=== PATIENT | male | born 1965 | race Caucasian/White ===

== ENCOUNTER 2018-09-18 18:36 | Emergency (ER) | payer OTHER, MEDICAID ==
[~2018-09-18] VITALS: Ht 162.6 cm; Wt 72.6 kg
[~2018-09-18 18:36] MED LIST: ABILIFY MAINTE400 MG IM; ABILIFY20 MG PO; ACETAMINOPHEN-1 EAC1 PO; AZITHROMYCIN 2250 MG PO; BACLOFEN 10MG T10 MG PO; BACTRIM DS TAB1 EACH PO; BUPROPION; COLACE100 MG PO; DESYREL; FLEXERIL PO; HYDROCODONE-AP1 EAC6 PO; IBUPROFEN 800800 M1 PO; KEFLEX500 M1 PO; OMEPRAZOLE 20 M20 M1 PO; OSELB75 PO; PAIN & FEVER325 MG PO; PERCOCET 5-3251 EACH PO; PREDNISONE 10 M10 MG PO; PREDNISONE 20 M20 M1 PO; PROAIR HFA8.5 GM INH; ROBAXIN 750 MG750 M1 PO; ROBAXIN500 MG PO; TAMSULOSIN HCL0.4 MG PO; TESSALON PERLE100 MG PO; TRAZODONE 150150 M1; TRAZODONE 150150 M1 PO; TRAZODONE HCL100 MG PO; TRIFLUOPERAZINE10 MG PO; UNKNOWN PSYCH MED; VICODIN 5-5001 EACH PO; VISTARIL 25 MG25 M1 PO; WELLBUTRIN 100100 M1 PO; WELLBUTRIN 100100 MG PO; ZPAK PO
[2018-09-18] MEDS ORDERED: TRAZODONE HCL100 MG PO (18:45)
[2018-09-18] MEDS ORDERED: TRAMADOL 50 MG50 MG PO (19:45)
[2018-09-18 19:56] VITALS: BP 109/73
== END 2018-09-18 19:56 | disposition home or self-care (01) ==
LOC: M.ERS 18:36
DX: S93.491A Sprain of other ligament of right ankle, initial encounter (principal); F32.9 Major depressive disorder, single episode, unspecified; M41.9 Scoliosis, unspecified; F17.210 Nicotine dependence, cigarettes, uncomplicated; Z90.49 Acquired absence of other specified parts of digestive tract; Z85.46 Personal history of malignant neoplasm of prostate; W10.8XXA Fall (on) (from) other stairs and steps, initial encounter; Y93.89 Activity, other specified; Y92.89 Other specified places as the place of occurrence of the external cause; Y99.8 Other external cause status

== ENCOUNTER 2019-08-26 11:44 | Emergency (ER) | payer OTHER, MEDICAID ==
[~2019-08-26] VITALS: Ht 165.1 cm; Wt 77.1 kg
[~2019-08-26 11:44] MED LIST changes: +TRAMADOL 50 MG50 MG PO
[2019-08-26 12:33] LABS: ABSOLUTE BASOPHILS 0.1 thou/uL (0.0-0.2); ABSOLUTE EOSINOPHILS 0.1 thou/uL (0.0-0.7); ABSOLUTE MONOCYTES 0.4 thou/uL (0.0-1.2); BASOPHILS 1.1 %; EOSINOPHILS 1.1 %; HEMATOCRIT 48.3 % (42.0-52.0); HEMOGLOBIN 16.9 gm/dL (14.0-18.0); LYMPHOCYTES 35.3 %; MCH 32.1 pg (26.0-34.0); MCHC 34.9 g/dL (28.0-37.0); MCV 92.1 fL (80.0-100.0); MONOCYTES 7.8 %; MPV 7.8 fl. (7.2-11.1); NUCLEATED RBCS 0 /100WBC; PLATELET COUNT* 299 thou/uL (150-400); POLYS 54.7 %; RBC 5.24 mil/uL (4.50-6.00); RDW-CV 13.4 % (10.5-14.5); WBC 5.6 thou/uL (4.0-11.0)
[2019-08-26 12:43] LABS: CALCIUM 8.8 mg/dL (8.5-10.1); CREATININE 1.2 mg/dL (0.6-1.3)
[2019-08-26 12:59] LABS: ALBUMIN 3.7 g/dL (3.4-5.0); TOTAL BILIRUBIN 0.7 mg/dL (<0.1-1.0); TOTAL PROTEIN 7.1 g/dL (6.4-8.2)
[2019-08-26] MEDS ORDERED: NABUMETONE 750750 M1 PO (13:12)
[2019-08-26] MEDS ORDERED: ZANAFLEX4 MG PO (13:12)
[2019-08-26] MEDS ORDERED: TRAMADOL 50 MG50 MG PO (13:12)
[2019-08-26 13:24] VITALS: BP 114/73
--- NOTE | 2019-08-26 15:18 | EKG ---
[place] [address] ELECTROCARDIOGRAM REPORT Name: SHAJIMARCK Carrizales Room: [facility]#: [id number] Admission: 08/26/19 Attend Phys: Discharge: 08/26/19 Date of : 67 Report #: [id number] THIS REPORT FOR: //name// [facility] ED Test Date: 2019-08-26 Test Time: 12:07:54 Pat Name: MARCK GIRARD Department: Room: Gender: M Auditing Specialist: : [id number] Requested By: Faviola Medina Order Number: [id number] MD: Sulaiman Savage Measurements Intervals [place] Rate: 75 P: 34 NH: 157 QRS: -10 QRSD: 100 T: 15 QT: 370 QTc: 414 Interpretive Statements Sinus rhythm Probable left atrial enlargement Low voltage, precordial leads Compared to ECG 09/28/2017 15:40:38 Low QRS voltage now present Electronically Signed On 08-26-2019 15:18:09 CDT by Sulaiman Savage [email or web address] <ELECTRONICALLY SIGNED> By: Sulaiman Savage MD, [facility] 08/26/19 1518 06 Sulaiman Savage MD, FACC /EPI
== END 2019-08-26 13:25 | disposition home or self-care (01) ==
LOC: M.ERS 11:44
PROVIDERS: Nurse Practitioner Family
DX: S46.212A Strain of muscle, fascia and tendon of other parts of biceps, left arm, initial encounter (principal); F32.9 Major depressive disorder, single episode, unspecified; Z90.49 Acquired absence of other specified parts of digestive tract; Z85.46 Personal history of malignant neoplasm of prostate; Z90.79 Acquired absence of other genital organ(s); X58.XXXA Exposure to other specified factors, initial encounter; Y93.89 Activity, other specified; Y92.89 Other specified places as the place of occurrence of the external cause; Y99.8 Other external cause status

== ENCOUNTER → 2020-04-21 | Outpatient (CLI) | payer OTHER, MEDICAID ==
[~2020-04-21] MED LIST changes: +NABUMETONE 750750 M1 PO; +ZANAFLEX4 MG PO
== END ==
LOC: M.MRI 04-16 11:30
PROVIDERS: ATTEND Family Medicine
DX: M19.012 Primary osteoarthritis, left shoulder (principal); G89.29 Other chronic pain; M25.512 Pain in left shoulder; M75.42 Impingement syndrome of left shoulder

== ENCOUNTER 2021-08-07 12:35 | Emergency (ER) | payer OTHER, MEDICAID ==
[~2021-08-07] VITALS: Ht 165.1 cm; Wt 73.9 kg
[2021-08-07] MEDS ORDERED: ABILIFY20 MG PO (12:50)
[2021-08-07] MEDS ORDERED: OMEPRAZOLE 20 M20 M1 PO (12:50)
[2021-08-07] MEDS ORDERED: SYMBICORT160 MCG/4. INH (12:51)
[2021-08-07 13:03] LABS: URINE BLOOD NEGATIVE (Negative); URINE CLARITY CLEAR; URINE COLOR YELLOW; URINE GLUCOSE-RANDOM NEGATIVE (Negative); URINE KETONES NEGATIVE (Negative); URINE LEUKOCYTES-REFLEX NEGATIVE (Negative); URINE NITRITE-REFLEX NEGATIVE (Negative); URINE PROTEIN NEGATIVE (Negative); URINE SPECIFIC GRAVITY >= 1.030 (1.005-1.030)
[2021-08-07 13:15] LABS: URINE BILIRUBIN 1+ (Negative)
[2021-08-07 13:16] LABS: ICTOTEST (BILI CONFIRMATORY) Negative (Negative)
[2021-08-07 14:01] LABS: ABSOLUTE BASOPHILS 0.1 thou/uL (0.0-0.2); ABSOLUTE EOSINOPHILS 0.1 thou/uL (0.0-0.7); ABSOLUTE LYMPHOCYTES 2.2 thou/uL (0.8-5.3); ABSOLUTE MONOCYTES 0.7 thou/uL (0.0-1.2); ABSOLUTE NEUTROPHILS 3.7 thou/uL (1.6-8.1); BASOPHILS 1.2 %; EOSINOPHILS 1.5 %; HEMATOCRIT 47.9 % (42.0-52.0); HEMOGLOBIN 16.5 gm/dL (14.0-18.0); LYMPHOCYTES 31.9 %; MCH 31.4 pg (26.0-34.0); MCHC 34.4 g/dL (28.0-37.0); MCV 91.1 fL (80.0-100.0); MONOCYTES 10.9 %; MPV 7.6 fl. (7.2-11.1); NUCLEATED RBCS 0 /100WBC; PLATELET COUNT* 293 thou/uL (150-400); POLYS 54.5 %; RBC 5.26 mil/uL (4.50-6.00); RDW-CV 13.2 % (10.5-14.5); WBC 6.9 thou/uL (4.0-11.0)
[2021-08-07 14:07] LABS: CALCIUM 8.1 mg/dL (8.5-10.1); CREATININE 1.1 mg/dL (0.6-1.3)
[2021-08-07 14:12] LABS: ALBUMIN 3.8 g/dL (3.4-5.0); TOTAL BILIRUBIN 0.7 mg/dL (<0.1-1.0); TOTAL PROTEIN 6.7 g/dL (6.4-8.2)
[2021-08-07] MEDS ORDERED: SKELAXIN 800 M800 M1 PO (15:15)
[2021-08-07] MEDS ORDERED: MEDROLDOSEPACK PO (15:15)
[2021-08-07] MEDS ORDERED: ZOFRAN ODT4 MG PO (15:15)
[2021-08-07] MEDS ORDERED: IBUPROFEN 800800 M1 PO (15:15)
[2021-08-07 15:33] VITALS: BP 115/77
== END 2021-08-07 15:33 | disposition home or self-care (01) ==
LOC: M.ERS 12:35
PROVIDERS: Nurse Practitioner Family
DX: M54.50 Low back pain, unspecified (principal); R10.9 Unspecified abdominal pain; F32.9 Major depressive disorder, single episode, unspecified; Z90.49 Acquired absence of other specified parts of digestive tract; Z98.890 Other specified postprocedural states; Z85.46 Personal history of malignant neoplasm of prostate; Z79.899 Other long term (current) drug therapy; Z88.8 Allergy status to other drugs, medicaments and biological substances